=== PATIENT | male | born 1975 | race Caucasian/White ===

== ENCOUNTER 2024-11-26 13:37 | Emergency (ER) | payer SELFPAY ==
[~2024-11-26] VITALS: Ht 180.3 cm; Wt 109.3 kg
[2024-11-26 13:58] VITALS: PULSE 74; RESP 16; TEMP 98.2
[2024-11-26 17:43] VITALS: BP 135/88; PULSE 89; RESP 20; TEMP 98.6; O2SAT 97
== END 2024-11-26 17:45 | disposition home or self-care (01) ==
LOC: EDBD 13:37 → ER 15:39
DX: M25.512 Pain in left shoulder (principal); M79.605 Pain in left leg; M25.572 Pain in left ankle and joints of left foot; H53.8 Other visual disturbances; R51.9 Headache, unspecified; V43.52XA Car driver injured in collision with other type car in traffic accident, initial encounter; Y92.488 Other paved roadways as the place of occurrence of the external cause
CPT/HCPCS: 70450; 99284